=== PATIENT | female | born 1990 | race Caucasian/White ===

== ENCOUNTER 2019-11-13 07:43 | Inpatient (IN) ==
[2019-11-13] MEDS ORDERED: Metoclopramide 10 MG/2 ML VIAL IVP PRN (07:56)
[2019-11-13] MEDS ORDERED: Famotidine 20 MG/2 ML VIAL IVP PRN (07:56)
[2019-11-13] MEDS ORDERED: Naloxone 0.4 MG/ML INJ IVP PRN (07:56)
[2019-11-13] MEDS ORDERED: Oxytocin 20 units/ LR 1000 mL 20 UNIT/1,000 ML BAG IVC SCH (08:00)
[2019-11-13 09:00] LABS: Basophils % 0.3 %; Eosinophils # 0.1 K/mcL (0.0-0.6); Eosinophils % 0.8 %; Hematocrit 31.9 % (35.3-44.9); Immature Granulocytes % 1.7 % (0-4); Lymphocytes # 1.8 K/mcL (0.6-4.6); Lymphocytes % 11.6 %; Mean Corpuscular HGB Conc 34.5 g/dL (31.6-35.5); Mean Corpuscular Hemoglobin 32.4 pg (28.0-33.3); Mean Corpuscular Volume 94.1 fL (83.0-100.0); Mean Platelet Volume 9.5 fL (9.4-12.4); Monocytes # 1.1 K/mcL (0.0-1.3); Monocytes % 7.1 %; Neutrophils # 12.3 K/mcL (1.6-8.9); Platelet Count 297 K/mcL (140-400); Red Blood Count 3.39 M/mcL (3.82-4.97); Red Cell Distribution Width 13.4 % (11.5-14.5); Segmented Neutrophils % 78.5 %; White Blood Count 15.6 K/mcL (4.3-11.1)
[2019-11-13 09:02] LABS: Amphetamine Screen,Urine Negative ng/mL (Cutoff=1000); Barbiturate Screen,Urine Negative ng/mL (Cutoff=200); Benzodiazepines Screen,Urine Negative ng/mL (Cutoff=200); Cannabinoid Screen,Urine Negative ng/mL (Cutoff = 50); Cocaine Screen,Urine Negative ng/mL (Cutoff= 300); Opiate Screen,Urine Negative ng/mL (Cutoff=300); Phencyclidine Screen,Urine Negative ng/mL (Cutoff=25)
[2019-11-13] MEDS: Ringers Solution, Lactated 1,000 ML IVC SCH (09:06)
[2019-11-13] MEDS ORDERED: *HR* Nalbuphine 10 MG/ML AMPUL IV PRN (10:00)
[2019-11-13 10:23] LABS: Alanine Aminotransferase 9 Units/L (7-52); Aspartate Amino Transferase 13 Units/L (13-39); BUN/Creatinine Ratio 16 (6-26); Blood Urea Nitrogen 9 mg/dL (6-20); Creatinine,Urine 138 mg/dL; Lactate Dehydrogenase 152 Units/L (140-271); Protein/Creatinine Ratio,Urine 0.28 mg/mg (0.00-0.20); Uric Acid 4.8 mg/dL (2.3-7.6); eGFR For African Americans > 60 (> 60); eGFR For Non-African Americans > 60 (> 60)
[2019-11-13] MEDS ORDERED: EPHEDrine 50 MG/ML VIAL IVP PRN (10:28)
[2019-11-13 13:06] LABS: Bilirubin,Urine Negative (Negative); Blood,Urine Negative (Negative); Clarity,Urine Cloudy (Clear); Color,Urine Yellow (Yellow); Glucose,Urine (UA) Normal (Normal); Ketones,Urine Negative (Negative); Leukocyte Esterase,Urine Moderate (Negative); Nitrite,Urine Negative (Negative); PH,Urine 6.5 pH Units (5.0-8.0); Protein,Urine Negative (Neg-Trace); Specific Gravity,Urine 1.016 (1.010-1.025); Urobilinogen,Urine Normal (Normal)
[2019-11-13 13:07] LABS: Bacteria,Urine Moderate per hpf (None-Few); Hyaline Casts,Urine None Seen per lpf (None-Few); RBC,Urine 0-3 per hpf (0-3); Squamous Epithelial Cell,Urine Many per lpf (None-Few); WBC,Urine 30-50 per hpf (0-3)
[2019-11-13] MEDS ORDERED: *HR* FentaNYL (PF) 100 MCG/2 ML VIAL IVP PRN (16:06)
[2019-11-13] MEDS: Epidural Premix (fent/bupiv) 110 ML EP SCH (18:01)
[2019-11-14] MEDS: Epidural Premix (fent/bupiv) 110 ML EP SCH (00:45)
[2019-11-14] MEDS: Ringers Solution, Lactated 1,000 ML IVC SCH (14:36)
[2019-11-14] MEDS ORDERED: CeFAZolin Syr 3,000MG/30 ML 3,000 MG/30 ML SYRINGE IVPB ONE (15:19)
[2019-11-14] MEDS ORDERED: Azithromycin 500 MG in 0.9 % Sodium Chloride 250 ML IVPB ONE (15:21)
[2019-11-14] MEDS ORDERED: Lidocaine -MPF 2% 5 ML VIAL ONE ×2 (15:37→16:41)
[2019-11-14] MEDS ORDERED: *HR* Oxytocin 10 UNIT/ML VIAL IM ONE ×2 (15:37→17:19)
[2019-11-14] MEDS ORDERED: Acetaminophen IV 1,000 MG/100 ML INFUS..BTL ONE (16:20)
[2019-11-14] MEDS ORDERED: Chloroprocaine/PF 20 ML VIAL INFILT ONE (16:29)
[2019-11-14] MEDS ORDERED: *HR* FentaNYL (PF) 100 MCG/2 ML VIAL ONE (16:37)
[2019-11-14] MEDS ORDERED: Ondansetron 4 MG/2 ML VIAL ONE (16:38)
[2019-11-14] MEDS ORDERED: *HR* Morphine Sulfate/PF 10 MG/10 ML AMPUL ONE (17:03)
[2019-11-14] MEDS ORDERED: Ketorolac 30 MG/ML VIAL ONE (17:05)
[2019-11-14] MEDS ORDERED: Ringers Solution, Lactated 1,000 ML ONE (17:19)
[2019-11-14] MEDS ORDERED: Sennosides 8.6 MG TABLET PO PRN (18:47)
[2019-11-14] MEDS ORDERED: Metoclopramide 10 MG/2 ML VIAL IVP PRN (18:47)
[2019-11-14] MEDS ORDERED: Ondansetron 4 MG/2 ML VIAL IVP PRN (18:47)
[2019-11-14] MEDS: Oxytocin 20 units/ LR 1000 mL 20 UNIT/1,000 ML BAG IVC SCH (19:45)
[2019-11-14] MEDS: Simethicone 80 MG TAB.CHEW PO SCH (21:55)
[2019-11-14] MEDS: cephALEXin 500 MG CAPSULE PO SCH (21:56)
[2019-11-14] MEDS: metroNIDAZOLE 500 MG TABLET PO SCH (21:56)
[2019-11-14] MEDS: *HR* OxyCODONE/APAP 5/325 TABLET PO PRN (22:53)
[2019-11-14] MEDS: Ketorolac 30 MG/ML VIAL IVP SCH (22:54)
[2019-11-15] MEDS: Oxytocin 20 units/ LR 1000 mL 20 UNIT/1,000 ML BAG IVC SCH (03:44)
[2019-11-15] MEDS: *HR* OxyCODONE/APAP 5/325 TABLET PO PRN ×2 (03:46→22:25)
[2019-11-15] MEDS: Ketorolac 30 MG/ML VIAL IVP SCH (05:50)
[2019-11-15] MEDS ORDERED: Ketorolac 30 MG/ML VIAL IVP SCH (06:00)
[2019-11-15 07:17] LABS: Basophils % 0.2 %; Eosinophils # 0.1 K/mcL (0.0-0.6); Eosinophils % 0.2 %; Hematocrit 26.5 % (35.3-44.9); Immature Granulocytes % 0.8 % (0-4); Lymphocytes # 1.6 K/mcL (0.6-4.6); Lymphocytes % 7.3 %; Mean Corpuscular HGB Conc 34.7 g/dL (31.6-35.5); Mean Corpuscular Hemoglobin 32.5 pg (28.0-33.3); Mean Corpuscular Volume 93.6 fL (83.0-100.0); Mean Platelet Volume 9.4 fL (9.4-12.4); Monocytes # 1.5 K/mcL (0.0-1.3); Monocytes % 6.6 %; Platelet Count 233 K/mcL (140-400); Red Blood Count 2.83 M/mcL (3.82-4.97); Red Cell Distribution Width 13.2 % (11.5-14.5); Segmented Neutrophils % 84.9 %; White Blood Count 22.4 K/mcL (4.3-11.1)
[2019-11-15 07:18] LABS: Hemoglobin 9.2 g/dL (11.5-15.4)
[2019-11-15] MEDS: Ibuprofen 600 MG TABLET PO SCH ×3 (11:35→23:56)
[2019-11-15] MEDS: Acetaminophen 325 MG TABLET PO SCH ×3 (11:36→23:56)
[2019-11-15] MEDS: Simethicone 80 MG TAB.CHEW PO SCH ×3 (11:37→21:23)
[2019-11-15] MEDS: cephALEXin 500 MG CAPSULE PO SCH ×3 (11:37→21:23)
[2019-11-15] MEDS: metroNIDAZOLE 500 MG TABLET PO SCH ×3 (11:37→21:23)
[2019-11-15] MEDS: Prenatal Vit/FA 1 EACH TABLET PO SCH (11:37)
[2019-11-16] MEDS: Acetaminophen 325 MG TABLET PO SCH (06:08)
[2019-11-16] MEDS: Ibuprofen 600 MG TABLET PO SCH ×2 (06:09→08:42)
[2019-11-16 07:43] VITALS: BP 124/77
[2019-11-16] MEDS: Simethicone 80 MG TAB.CHEW PO SCH (08:42)
[2019-11-16] MEDS: Prenatal Vit/FA 1 EACH TABLET PO SCH (08:42)
[2019-11-16] MEDS: cephALEXin 500 MG CAPSULE PO SCH (08:42)
[2019-11-16] MEDS: metroNIDAZOLE 500 MG TABLET PO SCH (08:43)
== END 2019-11-16 10:12 | disposition home or self-care (01) | DRG 540 ==
LOC: 1NENULAB 07:43 → 1NENUOBS 11-14 19:51
PROVIDERS: ADMIT Obstetrics & Gynecology; ATTEND Obstetrics & Gynecology